=== PATIENT | male | born 1970 | race Caucasian/White ===

== ENCOUNTER → 2022-03-03 13:08 | Outpatient (CLI) | payer OTHER, SELFPAY ==
--- NOTE | 2022-03-03 13:17 | DI.RAD.S_ITS ---
PROCEDURE: XR HIP W PEL IF DONE LT 2V INDICATIONS: LEFT HIP PAIN TECHNIQUE: AP pelvis with lateral view(s) of the left hip(s). COMPARISON: None. FINDINGS: Bones: The left hip has severe degenerative changes. There is irregularity of the femoral head and acetabulum. The acetabulum has osteophytosis. There is subchondral sclerosis. The right hip has mild to moderate degenerative changes with joint space narrowing, subchondral sclerosis, and subchondral cystic changes. No fractures or dislocations. Pelvic ring appears intact. No suspicious bony lesions. A lucency across the femoral head is seen, probably superimposed soft tissue Soft tissues: The visualized bowel gas pattern is normal. No suspicious soft tissue calcifications. . IMPRESSION: 1. Severe degenerative changes of the left hip consistent with osteoarthritis. 2. A lucency across the femoral head is seen, probably overlying folded soft tissue, however if there has been trauma and if a fracture is a consideration, recommend CT. Dictated by: Sajan Colón M.D. on 03/03/2022 at 13:58 Approved by: Sajan Colón M.D. on 03/03/2022 at 14:01
--- NOTE | 2022-03-03 13:17 | DI.RAD.S_ITS ---
PROCEDURE: XR LUMBAR SPINE 2-3V INDICATIONS: BACK PAIN TECHNIQUE: 3 views of the lumbar spine were acquired. COMPARISON: None. FINDINGS: Bones: 5 [id number] vertebrae are present. There is normal bony alignment. No vertebral body compression fractures. No suspicious bony lesions. Rightward curvature of the lumbar spine. Mild degenerative changes. Facet arthrosis at L4-5 and L5-S1. No anterolisthesis. Soft tissues: Overlying bowel gas pattern is normal. No suspicious soft tissue calcifications. IMPRESSION: 1. Mild degenerative changes, no acute abnormality. 2. No disc space narrowing. Dictated by: aSjan Colón M.D. on 03/03/2022 at 13:56 Approved by: Sajan Colón M.D. on 03/03/2022 at 13:57
--- NOTE | 2022-03-03 13:18 | DI.RAD.S_ITS ---
PROCEDURE: XR SHOULDER RT MIN 2V INDICATIONS: RIGHT SHOULDER PAIN TECHNIQUE: 3 views of the shoulder were acquired. COMPARISON: None. FINDINGS: Bones: No acute fractures or dislocations. No suspicious bony lesions. Visualized ribs appear intact. Mild acromioclavicular joint osteoarthrosis. Soft tissues: No suspicious soft tissue calcifications. IMPRESSION: No acute osseous abnormality. If the symptoms persist, consider cross sectional imaging such as MRI or CT for further assessment. Dictated by: Mj Bueno M.D. on 03/03/2022 at 14:06 Approved by: Mj Bueno M.D. on 03/03/2022 at 14:07
[2022-03-03 14:38] LABS: Add Manual Diff / Slide Review NO; Basophils Absolute Auto 100 /uL (0-100); Basophils Percent Auto 0.8 % (0-2); Eosinophils Absolute Auto 200 /uL (0-450); Eosinophils Percent Auto 1.9 % (2-4); Hematocrit 41.3 % (41-53); Hemoglobin 13.7 g/dL (13.5-17.5); Lymphocytes Absolute Auto 1300 /uL (1100-4500); Lymphocytes Percent Auto 14.9 % (25-40); Mean Corpuscular HGB Conc 33.1 % (30-36); Mean Corpuscular Hemoglobin 27.1 PG (26-34); Mean Corpuscular Volume 81.8 fL (80-100); Monocytes Absolute Auto 700 /uL (0-900); Monocytes Percent Auto 8.3 % (3-14); Neutrophils Absolute Auto 6300 /uL (1500-7000); Neutrophils Percent Auto 74.1 % (50-75); Platelet Count 232 X10^3/uL (150-400); Red Blood Cell Count 5.05 X10^6/uL (4.5-5.9); Red Cell Distribution Width 15.2 % (11.6-14.8); White Blood Cell Count 8.5 X10^3/uL (4.5-11.0)
[2022-03-03 14:58] LABS: HEMOLYSIS < 15 (0-50); Potassium 3.9 mmol/L (3.4-5.1)
[2022-03-03 14:59] LABS: Alanine Aminotransferase 54 IU/L (<50); Albumin 4.7 g/dL (3.5-5.0); Albumin Globulin Ratio 1.8 (1.0-2.8); Alkaline Phosphatase 103 U/L (38-126); Aspartate Aminotransferase 51 IU/L (17-59); BUN Creatinine Ratio 14.5 (6-22); Bilirubin Total 1.3 mg/dL (0.2-1.3); Blood Urea Nitrogen 17 mg/dL (9-20); Calcium 9.1 mg/dL (8.4-10.2); Carbon Dioxide 26 mmol/L (22-32); Chloride 101 mmol/L (98-107); Cholesterol 218 mg/dL (140-199); Estimated Glomerular Filt Rate > 60 mL/min (>60); Globulin 2.6 g/dL (1.7-4.1); Glucose 117 mg/dL (70-100); HDL Cholesterol 57 mg/dL (40-60); Sodium 135 mmol/L (137-145); Total Protein 7.3 g/dL (6.3-8.2); Triglycerides 485 mg/dL (35-150)
== END ==
PROVIDERS: PCP Physician Assistant; Referring Provider Physician Assistant; Visit Provider Physician Assistant
DX: R00.2 Palpitations (principal); Z13.220 Encounter for screening for lipoid disorders; M54.50 Low back pain, unspecified; M25.552 Pain in left hip; M25.511 Pain in right shoulder
CPT/HCPCS: 36415; 72100; 73030; 73502; 80053; 80061; 85025

== ENCOUNTER 2025-02-12 14:17 | Emergency (ER) | payer OTHER, SELFPAY ==
[2025-02-12 14:20] VITALS: BP 173/108; PULSE 107; RESP 20; TEMP 36.7; O2SAT 97; BMI 26.6
--- NOTE | 2025-02-12 14:27 | EKG_ITS ---
[facility] [address] [place] [address] Test Date: 2025-02-12 Pat Name: Brett Saha Department: [facility] Room: Gender: Male Mentally Retarded Teacher: : 1970 Requested By: Order Number: [id number] Reading MD: Bonifacio More Measurements Intervals [place] Rate: 109 P: 78 NM: 148 QRS: 69 QRSD: 138 T: 249 QT: 386 QTc: 519 Interpretive Statements Sinus tachycardia Left ventricular hypertrophy with QRS widening and repolarization abnormality ( Sokolow-Reece , Kenny product , Romhilt-Knight ) Electronically Signed On 02-13-2025 19:07:56 PDT by Bonifacio More
--- NOTE | 2025-02-12 14:29 | DI.RAD.S_ITS ---
PROCEDURE: XR CHEST 1V INDICATIONS: Chest Pain TECHNIQUE: One view of the chest was acquired. COMPARISON: None. FINDINGS AND IMPRESSION: Focal nodular opacity is seen in the right upper lung. Multifocal opacity seen in the left mid and upper lung. Findings may be infectious/inflammatory. Correlate with any symptoms and consider surveillance imaging if concordant with infection after treatment trial. If clinically inconsistent with pneumonia, chest CT with contrast is recommended. Heart size is borderline enlarged. Degenerative osseous changes. Dictated by: Van Lyles M.D. on 02/12/2025 at 15:12 Approved by: Van Lyles M.D. on 02/12/2025 at 15:14
[2025-02-12 14:51] LABS: Add Manual Diff / Slide Review NO; Basophils Absolute Auto 100 /uL (0-100); Eosinophils Absolute Auto 100 /uL (0-450); Eosinophils Percent Auto 1.5 % (2-4); Hematocrit 42.8 % (41-53); Hemoglobin 15.1 g/dL (13.5-17.5); Lymphocytes Absolute Auto 1400 /uL (1100-4500); Lymphocytes Percent Auto 14.4 % (25-40); Mean Corpuscular HGB Conc 35.4 % (30-36); Mean Corpuscular Hemoglobin 34.4 PG (26-34); Mean Corpuscular Volume 97.2 fL (80-100); Monocytes Absolute Auto 1000 /uL (0-900); Monocytes Percent Auto 10.5 % (3-14); Neutrophils Absolute Auto 6900 /uL (1500-7000); Neutrophils Percent Auto 72.6 % (50-75); Platelet Count 232 X10^3/uL (150-400); Red Cell Distribution Width 14.3 % (11.6-14.8); White Blood Cell Count 9.5 X10^3/uL (4.5-11.0)
[2025-02-12 14:55] LABS: Prothrombin Time 11.6 SECONDS (9.4-12.5)
[2025-02-12 14:58] LABS: PTT Partial Thromboplastin Tim 36 SECONDS (25.1-36.5)
[2025-02-12 15:01] LABS: Alanine Aminotransferase 27 IU/L (<50); Albumin 4.4 g/dL (3.5-5.0); Albumin Globulin Ratio 1.6 (1.0-2.8); Alkaline Phosphatase 74 U/L (38-126); Aspartate Aminotransferase 32 IU/L (17-59); BUN Creatinine Ratio 11.6 (6-22); Bilirubin Total 1.2 mg/dL (0.2-1.3); Blood Urea Nitrogen 15 mg/dL (9-20); Calcium 9.3 mg/dL (8.4-10.2); Carbon Dioxide 24 mmol/L (22-32); Chloride 103 mmol/L (98-107); Creatine Kinase 36 U/L (55-170); Estimated Glomerular Filt Rate > 60 mL/min (>60); Globulin 2.8 g/dL (1.7-4.1); Glucose 97 mg/dL (70-99); HEMOLYSIS < 15 (0-50); Lipase 135 U/L (23-300); Magnesium 2.1 mg/dL (1.6-2.3); Potassium 4.1 mmol/L (3.4-5.1); Sodium 136 mmol/L (137-145); Total Protein 7.2 g/dL (6.3-8.2)
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
[2025-02-12 15:11] LABS: NT-proBNP (BNP-Adult 18+) 1820 pg/mL (<125); Troponin I 0.033 ng/mL (0.01-0.034)
[2025-02-12] MEDS: ASPIRIN 81 MG CHEW TAB 324 MG PO (15:44)
[2025-02-12 16:58] LABS: Lactate (Lactic Acid) 0.9 mmol/L (0.7-2.1)
[2025-02-12 17:15] LABS: Procalcitonin 0.093 ng/mL (<0.5)
[2025-02-12] MEDS: cefTRIAXone 1,000 MG in SODIUM CHLORIDE 0.9% 100 ML 200 MG IV (17:35)
[2025-02-12] MEDS: DOXYCYCLINE HYCLATE 100 MG TABLET PO (17:35)
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
--- NOTE | 2025-02-12 17:59 | DI.CT.S_ITS ---
PROCEDURE: CT ANGIO CHEST PE PROTOCOL INDICATIONS: LIND, tachy, eval for PE TECHNIQUE: After the administration of intravenous contrast, 2 mm thick sections acquired from the pulmonary apices to the posterior costophrenic angles. 3-dimensional maximum intensity projection (MIP) coronal and sagittal reformats were then acquired through the thorax. For radiation dose reduction, the following was used: automated exposure control, adjustment of mA and/or kV according to patient size. COMPARISON: [facility], CR, XR CHEST 1V, 02/12/2025, 14:38. FINDINGS: Image quality: Diagnostic. Pulmonary arteries: Pulmonary arteries are normal in size, and demonstrate no intraluminal filling defects to suggest central pulmonary embolism. Lower Neck: No enlarged lymph nodes. Thyroid: No thyroid nodules which require sonographic follow up, per consensus guidelines. Axillae: No enlarged lymph nodes. Chest Wall: Unremarkable. Bones: Visualized osseous structures appear intact without acute fracture or focal destructive lesion. No acute compression fractures of the imaged spine. Lungs and Pleura: Small bilateral pleural effusions with associated compressive atelectasis. Diffusely scattered bilateral patchy ground-glass/consolidative nodules involving the bilateral hemithoraces. There is diffuse smooth septal thickening. Minimal perihilar airway thickening. Visualized airways appear clear. Heart: Heart size is normal. Small pericardial effusion. Coronary atherosclerotic vascular calcifications are noted. . Thoracic Vessels: No aortic aneurysm. Mediastinum and [place]: Multiple prominent mediastinal and hilar lymph nodes which are more notable for number rather than size are favored to represent reactive adenopathy. Esophagus: No wall thickening. Small hiatal hernia. Upper Abdomen: Visualized upper abdomen solid organs and bowel loops appear normal. IMPRESSION: No acute pulmonary emboli. No evidence for acute right-sided heart strain. Diffuse scattered patchy/ill-defined ground-glass and consolidative nodules likely infectious in etiology. Recommend short interval follow-up chest CT in 3 months to document resolution. Small pericardial effusion, bilateral pleural effusion, and smooth septal thickening may represent concurrent pulmonary edema. Coronary atherosclerosis. Other chronic findings as above. Dictated by: Samm Seymour M.D. on 02/12/2025 at 19:38 Approved by: Samm Seymour M.D. on 02/12/2025 at 19:44
[2025-02-12 18:45] VITALS: BP 194/109; PULSE 98
[2025-02-12] MEDS: LABETALOL 20 MG/4 ML SYRINGE 10 MG IV (18:45)
[2025-02-12] MEDS: FUROSEMIDE 40 MG/4 ML VIAL IV (20:16)
[2025-02-12 20:30] VITALS: BP 171/96; PULSE 92
[2025-02-12 20:31] VITALS: BP 171/96; PULSE 92; RESP 18; O2SAT 98
== END 2025-02-12 20:34 | disposition home or self-care (01) ==
PROVIDERS: Emergency Medicine; Emergency Provider Emergency Medicine; PCP Physician Assistant
DX: J18.9 Pneumonia, unspecified organism (principal)
CPT/HCPCS: 36415; 71045; 71275; 80053; 82550; 83605; 83690; 83735; 83880; 84145; 84484; 85025; 85610; 85730; 87040; 93005; 96365; 96375; 99284; J0696; J1938; Q9967

== ENCOUNTER 2025-02-21 15:31 | Emergency (ER) | payer OTHER, SELFPAY ==
[2025-02-21 15:37] VITALS: BP 186/111; PULSE 111; RESP 17; TEMP 36.3; O2SAT 98; BMI 26.6
--- NOTE | 2025-02-21 15:51 | EKG_ITS ---
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
--- NOTE | 2025-02-21 15:51 | DI.RAD.S_ITS ---
PROCEDURE: XR CHEST 1V INDICATIONS: Shortness of breath TECHNIQUE: One view of the chest was acquired. COMPARISON: [facility], CT, CT ANGIO CHEST PE PROTOCOL, 02/12/2025, 18:06. [facility], CR, XR CHEST 1V, 02/12/2025, 14:38. FINDINGS: Surgical changes and devices: A left-sided electronic device is seen. Lungs and pleura: Generalized interstitial prominence is seen, which is worse than on the prior examination. No large pleural effusions or pneumothorax. Mediastinum: Mediastinal contours appear normal. Heart size is normal. Bones and chest wall: No suspicious bony lesions. Age-appropriate bony degenerative changes are seen. Overlying soft tissues appear unremarkable. IMPRESSION: Generalized interstitial prominence is seen, which is more prominent than on the prior study. Given prior imaging, infection is suspected, although differential diagnosis includes pulmonary edema No cardiomegaly. Dictated by: Jorge Martel M.D. on 02/21/2025 at 15:32 Approved by: Jorge Martel M.D. on 02/21/2025 at 15:33
[2025-02-21 16:10] LABS: Add Manual Diff / Slide Review NO; Basophils Absolute Auto 100 /uL (0-100); Basophils Percent Auto 0.7 % (0-2); Eosinophils Absolute Auto 100 /uL (0-450); Eosinophils Percent Auto 0.9 % (2-4); Hematocrit 42.5 % (41-53); Hemoglobin 15.2 g/dL (13.5-17.5); Lymphocytes Absolute Auto 1200 /uL (1100-4500); Lymphocytes Percent Auto 13.5 % (25-40); Mean Corpuscular HGB Conc 35.7 % (30-36); Mean Corpuscular Hemoglobin 33.7 PG (26-34); Mean Corpuscular Volume 94.6 fL (80-100); Monocytes Absolute Auto 900 /uL (0-900); Monocytes Percent Auto 10.1 % (3-14); Neutrophils Absolute Auto 6600 /uL (1500-7000); Neutrophils Percent Auto 74.8 % (50-75); Platelet Count 288 X10^3/uL (150-400); Red Blood Cell Count 4.49 X10^6/uL (4.5-5.9); Red Cell Distribution Width 13.8 % (11.6-14.8); White Blood Cell Count 8.9 X10^3/uL (4.5-11.0)
[2025-02-21 16:19] LABS: INR 1.1 (0.9-1.3); Prothrombin Time 12.4 SECONDS (9.4-12.5)
[2025-02-21 16:24] LABS: Alanine Aminotransferase 34 IU/L (<50); Albumin 4.3 g/dL (3.5-5.0); Albumin Globulin Ratio 1.7 (1.0-2.8); Alkaline Phosphatase 68 U/L (38-126); Aspartate Aminotransferase 37 IU/L (17-59); BUN Creatinine Ratio 13.7 (6-22); Bilirubin Total 1.4 mg/dL (0.2-1.3); Blood Urea Nitrogen 16 mg/dL (9-20); Calcium 9.3 mg/dL (8.4-10.2); Carbon Dioxide 28 mmol/L (22-32); Chloride 101 mmol/L (98-107); Estimated Glomerular Filt Rate > 60 mL/min (>60); Globulin 2.6 g/dL (1.7-4.1); Glucose 99 mg/dL (70-99); HEMOLYSIS < 15 (0-50); Lactate (Lactic Acid) 1.1 mmol/L (0.7-2.1); Potassium 4.2 mmol/L (3.4-5.1); Sodium 137 mmol/L (137-145); Total Protein 6.9 g/dL (6.3-8.2)
[2025-02-21 16:36] LABS: NT-proBNP (BNP-Adult 18+) 2180 pg/mL (<125); Troponin I 0.032 ng/mL (0.01-0.034)
[2025-02-21 22:37] VITALS: PULSE 111; RESP 22; O2SAT 99
[2025-02-21 22:38] VITALS: BP 179/115; PULSE 110; RESP 24; O2SAT 98
[2025-02-21 23:00] VITALS: BP 168/99; PULSE 102; RESP 25; O2SAT 97
[2025-02-21 23:30] VITALS: BP 159/97; PULSE 101; RESP 17; O2SAT 93
[2025-02-22] VITALS: BP 167/103; PULSE 111; RESP 22; O2SAT 97
[2025-02-22 00:30] VITALS: BP 159/101; PULSE 101; RESP 23; O2SAT 96
--- NOTE | 2025-02-22 00:32 | ED_ITS ---
HPI - General Adult General Chief complaint: Shortness of Breath/Dyspnea Stated complaint: SOB, chest pain Time Seen by Provider: 02/21/25 16:17 Source: patient Mode of arrival: Ambulatory History of Present Illness HPI narrative: 54-year-old gentleman with a history of alcohol use disorder, palpitations with recent ambulatory cardiac monitoring done, CT scan of the chest suggested possible pneumonia he was treated with Rocephin, doxycycline and CHF was considered as well. He was given Lasix in the department and an outpatient course of doxycycline. patient notes that he has not had any alcohol since he was seen in the emergency department on February 12, he was feeling better until the 40 mg of Lasix course was completed, after 5 days. He has a couple of doses remaining of his outpatient doxycycline course. He is not coughing not complaining of fevers but is noticing significant orthopnea, PND, no significant lower extremity edema and is exhausted because every time he lays down to sleep he finds that he can not breathe. He still has a Zio patch in place and this is supposed to be removed on February 24 Related Data Previous Rx's Medication Instructions Recorded doxycycline hyclate 100 mg tablet 100 mg PO BID #20 tabs 02/12/25 furosemide 40 mg tablet (Lasix) 40 mg PO DAILY #5 tabs 02/12/25 chlordiazepoxide HCl 25 mg capsule 25 mg PO BID PRN alcohol 02/22/25 withdrawal #10 caps furosemide 20 mg tablet 20 mg PO DAILY #60 tabs 02/22/25 metoprolol tartrate 25 mg tablet 25 mg PO BID #60 tabs 02/22/25 potassium chloride 8 mEq 8 meq PO DAILY #60 caps 02/22/25 capsule,extended release Allergies Allergy/AdvReac Type Severity Reaction Status Date / Time No Known Drug Allergies Allergy Verified 02/21/25 15:36 Review of Systems Review of Systems Narrative: Pertinent positive and negative findings as per HPI Patient History Alcohol type: hard liquor Exam Initial Vital Signs Initial Vital Signs: Vital Signs Temperature 97.4 F L 02/21/25 15:37 Pulse Rate 111 H 02/21/25 15:37 Respiratory Rate 17 02/21/25 15:37 Blood Pressure 186/111 H 02/21/25 15:37 Pulse Oximetry 98 02/21/25 15:37 Oxygen Delivery Method Room Air 02/21/25 15:37 General: Healthy appearing, in no acute distress. Able to give a complete and coherent history. Well-nourished well-developed HEENT: Moist mucous membranes, normal sclera with reactive pupils, Neck: No JVD, supple Respiratory: Lungs With basilar crackles, no significant rhonchi Cardiac: mild tachycardia with Regular rate and rhythm no murmurs no bruits Abdomen: Soft, nontender, no rebound or guarding, no flank pain Skin: Warm and dry, no rashes Neurologic: Grossly neurologically intact with no obvious asymmetries or abnormalities Extremities: No trauma, well perfused, no significant lower extremity edema Psych: Cooperative, appropriate insight and affect Course Orders Ordered: Discontinued Medications Chlordiazepoxide HCl (Chlordiazepoxide 25 Mg Capsule) 25 mg PO NOW ONE Stop: 02/22/25 00:55 Furosemide 60 mg/ Sodium (Chloride) 56 mls @ 112 mls/hr IV NOW ONE Stop: 02/22/25 00:54 Metoprolol Tartrate (Metoprolol Ir 25 Mg Tablet) 50 mg PO NOW ONE Stop: 02/22/25 00:54 Vital Signs Vital signs: Vital Signs - 8 hr 02/21/25 22:37 02/21/25 22:38 02/21/25 22:38 Pulse Rate 111 H 110 H Respiratory Rate 22 24 Blood Pressure 179/115 H Pulse Oximetry 99 98 Oxygen Delivery Method Room Air Room Air 02/21/25 23:00 02/21/25 23:00 02/21/25 23:30 Pulse Rate 102 H Respiratory Rate 25 H Blood Pressure 168/99 H 159/97 H Pulse Oximetry 97 Oxygen Delivery Method Room Air 02/21/25 23:30 02/22/25 00:00 02/22/25 00:00 Pulse Rate 101 H 111 H Respiratory Rate 17 22 Blood Pressure 167/103 H Pulse Oximetry 93 97 Oxygen Delivery Method Room Air Room Air Medical Decision Making Lab Data 02/21/25 16:00 02/21/25 16:00 Labs: Lab Results 02/21/25 Range/Units 16:00 WBC 8.9 (4.5-11.0) X10^3/uL RBC 4.49 L (4.5-5.9) X10^6/uL Hgb 15.2 (13.5-17.5) g/dL Hct 42.5 (41-53) % MCV 94.6 (80-100) fL MCH 33.7 (26-34) PG MCHC 35.7 (30-36) % RDW 13.8 (11.6-14.8) % Plt Count 288 (150-400) X10^3/uL Neut % (Auto) 74.8 (50-75) % Lymph % (Auto) 13.5 L (25-40) % Cherry % (Auto) 10.1 (3-14) % Eos % (Auto) 0.9 L (2-4) % Baso % (Auto) 0.7 (0-2) % Neut # (Auto) 6600 (4869-6468) /uL Lymph # (Auto) 1200 (5039-2911) /uL Cherry # (Auto) 900 (0-900) /uL Eos # (Auto) 100 (0-450) /uL Baso # (Auto) 100 (0-100) /uL PT 12.4 (9.4-12.5) SECONDS INR 1.1 (0.9-1.3) Sodium 137 (137-145) mmol/L Potassium 4.2 (3.4-5.1) mmol/L Chloride 101 (98-107) mmol/L Carbon Dioxide 28 (22-32) mmol/L BUN 16 (9-20) mg/dL Creatinine 1.17 (0.66-1.25) mg/dL Estimated GFR > 60 (>60) mL/min BUN/Creatinine Ratio 13.7 (6-22) Glucose 99 (70-99) mg/dL Lactate 1.1 (0.7-2.1) mmol/L Calcium 9.3 (8.4-10.2) mg/dL Total Bilirubin 1.4 H (0.2-1.3) mg/dL AST 37 (17-59) IU/L ALT 34 (<50) IU/L Alkaline Phosphatase 68 (38-126) U/L Troponin I 0.032 (0.01-0.034) ng/mL NT-Pro-B Natriuret Pep 2180 H (<125) pg/mL Total Protein 6.9 (6.3-8.2) g/dL Albumin 4.3 (3.5-5.0) g/dL Globulin 2.6 (1.7-4.1) g/dL Albumin/Globulin Ratio 1.7 (1.0-2.8) Imaging Data CT angio chest from 02/12/25: Radiologist's Impression: PROCEDURE: CT ANGIO CHEST PE PROTOCOL INDICATIONS: LIND, tachy, eval for PE TECHNIQUE: After the administration of intravenous contrast, 2 mm thick sections acquired from the pulmonary apices to the posterior costophrenic angles. 3-dimensional maximum intensity projection (MIP) coronal and sagittal reformats were then acquired through the thorax. For radiation dose reduction, the following was used: automated exposure control, adjustment of mA and/or kV according to patient size. COMPARISON: [facility], , XR CHEST 1V, 02/12/2025, 14:38. FINDINGS: Image quality: Diagnostic. Pulmonary arteries: Pulmonary arteries are normal in size, and demonstrate no intraluminal filling defects to suggest central pulmonary embolism. Lower Neck: No enlarged lymph nodes. Thyroid: No thyroid nodules which require sonographic follow up, per consensus guidelines. Axillae: No enlarged lymph nodes. Chest Wall: Unremarkable. Bones: Visualized osseous structures appear intact without acute fracture or focal destructive lesion. No acute compression fractures of the imaged spine. Lungs and Pleura: Small bilateral pleural effusions with associated compressive atelectasis. Diffusely scattered bilateral patchy ground-glass/consolidative nodules involving the bilateral hemithoraces. There is diffuse smooth septal thickening. Minimal perihilar airway thickening. Visualized airways appear clear. Heart: Heart size is normal. Small pericardial effusion. Coronary atherosclerotic vascular calcifications are noted. . Thoracic Vessels: No aortic aneurysm. Mediastinum and [place]: Multiple prominent mediastinal and hilar lymph nodes which are more notable for number rather than size are favored to represent reactive adenopathy. Esophagus: No wall thickening. Small hiatal hernia. Upper Abdomen: Visualized upper abdomen solid organs and bowel loops appear normal. IMPRESSION: No acute pulmonary emboli. No evidence for acute right-sided heart strain. Diffuse scattered patchy/ill-defined ground-glass and consolidative nodules likely infectious in etiology. Recommend short interval follow-up chest CT in 3 months to document resolution. Small pericardial effusion, bilateral pleural effusion, and smooth septal thickening may represent concurrent pulmonary edema. Coronary atherosclerosis. Other chronic findings as above. Dictated by: Samm Seymour M.D. on 02/12/2025 at 19:38 Chest x-ray: Radiologist's Impression: PROCEDURE: XR CHEST 1V INDICATIONS: Shortness of breath TECHNIQUE: One view of the chest was acquired. COMPARISON: [facility], CT, CT ANGIO CHEST PE PROTOCOL, 02/12/2025, 18:06. [facility], CR, XR CHEST 1V, 02/12/2025, 14:38. FINDINGS: Surgical changes and devices: A left-sided electronic device is seen. Lungs and pleura: Generalized interstitial prominence is seen, which is worse than on the prior examination. No large pleural effusions or pneumothorax. Mediastinum: Mediastinal contours appear normal. Heart size is normal. Bones and chest wall: No suspicious bony lesions. Age-appropriate bony degenerative changes are seen. Overlying soft tissues appear unremarkable. IMPRESSION: Generalized interstitial prominence is seen, which is more prominent than on the prior study. Given prior imaging, infection is suspected, although differential diagnosis includes pulmonary edema No cardiomegaly. Dictated by: Jorge Martel M.D. on 02/21/2025 at 15:32 MDM Narrative Medical decision making narrative: CC:Increasing dyspnea Complicating co-morbidities: alcohol use disorder, no alcohol for the last 1- 1/2 weeks, recent treatment for outpatient pneumonia, concern for congestive heart failure, elevated blood pressures, Zio patch currently in place Data collected from: patient Medical records reviewed: notes with diagnosis of pneumonia and congestive heart failure with studies done on February 12 are reviewed Differential considered: alcohol-induced cardiomyopathy, congestive heart failure, acute coronary syndrome, atypical pneumonia, Exam documented above, pertinent findings include: bibasilar crackles, mild tachycardia, hypertension, no lower extremity edema Lab Test results independently reviewed as above. Pertinent findings: Independently reviewed EKG: sinus tachycardia, left bundle branch block, no acute ischemic changes Imaging studies independently reviewed: chest x-ray suggests increased cardiomegaly and increased pulmonary edema compared to exams from 02/12 Consultations: discussion with hospitalist service. Outpatient treatment would be safe. Treatments: oral doxycycline, IV Lasix, oral metoprolol Discussion: 54-year-old gentleman with dyspnea, orthopnea did feel better with initial dose of Lasix currently has 2 more days of a 10 day course of oral doxycycline for presumed atypical pneumonia noted on February 12. 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 Significantly hypertensive and tachycardic today I suspect there is a component of alcohol withdrawal included with this, he is not currently on baseline hypertensive. He is having difficulty sleeping because of his orthopnea, not currently requiring oxygen. With his elevated blood pressures, heart rate and 2nd visit for similar findings would like to admit him for further evaluation of his heart failure and treatment of same. He is given 60 mg of Lasix in the emergency department, he has 4 more total doses of doxycycline to complete a 10 day course and is not show any signs of acute infection or sepsis. he has never had an echocardiogram, has been seeing his primary trailhead construction worker for complaints of palpitations and has a Zio patch that is to be removed in approximately 48 hours.No evidence of acute coronary syndrome currently significant hypertension and tachycardia, we will try 25 mg of Librium and 50 mg of metoprolol tartrate. Patient does have echocardiogram scheduled at the end of this month with follow up with his trailhead construction worker shortly thereafter. Discharge Plan Departure Patient Disposition: Home Clinical Impression: Alcohol use disorder, Heart palpitations Congestive heart failure Qualifiers: Heart failure type: unspecified Heart failure chronicity: unspecified Qualified Code(s): I50.9 - Heart failure, unspecified Hypertension Qualifiers: Hypertension type: unspecified Qualified Code(s): I10 - Essential (primary) hypertension Instructions: DI for Heart Failure, DI for Alcohol Use Disorder Activity Restrictions/Additional Instructions: thank you for coming in today the pneumonia component of your shortness of breath is responding nicely to the doxycycline, there does not appear to be any new infection, please complete the total course of doxycycline the congestive heart failure component of your shortness of breath does seem to be worsening slightly. I suspect that this is related to your alcohol use. I commend you on deciding that it is time to stop drinking altogether. To treat your congestive heart failure I have given you a prescription for 20 mg of Lasix to continue to take daily, please combine this with 8 mEq of potassium. You will need to discuss this with your trailhead construction worker when you follow up after your echocardiogram has been done at the end of the month with your elevated blood pressure and heart rate I am going to suggest metoprolol, 25 mg twice a day. Please do keep track of heart rate and blood pressures over the next month I suspect that there is a degree of alcohol withdrawal to all of this. I have given you a prescription for Librium/chlordiazepoxide that can help with mild alcohol withdrawal symptoms, I would recommend once or twice a day based on how shaky your feeling for the next 4-5 days. All prescriptions have been electronically transmitted to [facility] in [place] If you find that you are getting worse or develop any new symptoms, please feel free to return to the emergency department for further evaluation. Prescriptions: New metoprolol tartrate 25 mg tablet 25 mg PO BID Qty: 60 1RF chlordiazepoxide HCl 25 mg capsule 25 mg PO BID PRN (Reason: alcohol withdrawal) Qty: 10 0RF potassium chloride 8 mEq capsule, extended release 8 meq PO DAILY Qty: 60 1RF furosemide 20 mg tablet 20 mg PO DAILY Qty: 60 1RF No Action doxycycline hyclate 100 mg tablet 100 mg PO BID Qty: 20 0RF furosemide [Lasix] 40 mg tablet 40 mg PO DAILY Qty: 5 0RF Referrals: Aaliyah Evans PA-C [Primary Care Provider] - Stand Alone Forms: Patient Portal/API/Survey
[2025-02-22 01:00] VITALS: BP 161/101; PULSE 100; RESP 14; O2SAT 97
[2025-02-22] MEDS: METOPROLOL IR 25 MG TABLET 50 MG PO (01:16)
[2025-02-22] MEDS: chlordiazePOXIDE 25 MG CAPSULE PO (01:17)
[2025-02-22] MEDS: FUROSEMIDE 60 MG in SODIUM CHLORIDE 0.9% 50 ML 112 MG IV (01:17)
[2025-02-22 01:30] VITALS: BP 170/114; PULSE 106; RESP 18; O2SAT 97
== END 2025-02-22 02:12 | disposition home or self-care (01) ==
PROVIDERS: Student in an Organized Health Care Education/Training Program; Emergency Provider Emergency Medicine; PCP Physician Assistant
DX: I11.0 Hypertensive heart disease with heart failure (principal); I50.9 Heart failure, unspecified; F10.90 Alcohol use, unspecified, uncomplicated; R00.2 Palpitations
CPT/HCPCS: 36415; 71045; 80053; 83605; 83880; 84484; 85025; 85610; 93005; 96365; 99284; J1938

== ENCOUNTER → 2025-04-22 12:13 | Outpatient (CLI) | payer OTHER, SELFPAY ==
[2025-04-22 13:16] LABS: Blood Urea Nitrogen 19 mg/dL (9-20); Calcium 9.1 mg/dL (8.4-10.2); Carbon Dioxide 25 mmol/L (22-32); Chloride 102 mmol/L (98-107); Estimated Glomerular Filt Rate > 60 mL/min (>60); Glucose 103 mg/dL (70-99); HEMOLYSIS < 15 (0-50); Potassium 4.1 mmol/L (3.4-5.1); Sodium 133 mmol/L (137-145)
== END ==
PROVIDERS: PCP Physician Assistant; Referring Provider Nurse Practitioner; Visit Provider Nurse Practitioner
DX: I50.22 Chronic systolic (congestive) heart failure (principal)
CPT/HCPCS: 36415; 80048